=== PATIENT | female | born 1995 | race African-American/Black ===

== ENCOUNTER 2020-02-01 08:11 | Emergency (ER) | payer OTHER, SELFPAY ==
--- NOTE | ~2020-02-01 | XR_ITS ---
EXAMINATION: XR tibia fibula RT 2V DATE: 02/01/2020 08:40 INDICATION: Right lower leg pain. TECHNIQUE: 2 views of right tibia and fibula were obtained. COMPARISON: None. FINDINGS: Bone alignment is normal. No fracture. Joint spaces are well maintained. IMPRESSION: 1. Normal right tibia and fibula. Reviewed, dictated and finalized at location A.
--- NOTE | 2020-02-01 08:21 | ED.GENADULT ---
HPI - General Adult General Chief complaint: Extremity Injury, Lower Stated complaint: right ankle Time Seen by Provider: 02/01/20 08:21 Source: patient Mode of arrival: ambulatory Limitations: no limitations History of Present Illness HPI narrative: 24-year-old female patient presents to the [facility] with complaints of right ankle right leg pain since yesterday. Patient states that she was at work and a piece of wood fell onto her right leg scraping up her right leg. Patient states she is also having pain to the right medial ankle. Patient states she is able to walk on it but does have increased pain when doing so. Patient states that she did put ice on it right after the injury yesterday but denies taking any Tylenol or ibuprofen. Related Data Home Medications Medication Instructions Recorded Confirmed norgestimate-ethinyl estradiol tablet 02/01/20 [Tri-Sprintec (28)] Allergies Allergy/AdvReac Type Severity Reaction Status Date / Time No Known Allergies Allergy Unverified 09/09/18 15:59 Review of Systems Review of Systems: Narrative: CONSTITUTIONAL: Denies fever, chills, or sweats. EYES: Denies visual changes, redness, or discharge. ENT: Denies rhinorrhea, congestion, sore throat, or otalgia. CARDIOVASCULAR: Denies chest pain, palpitations, or edema. RESPIRATORY: Denies cough or dyspnea. GASTROINTESTINAL: Denies abdominal pain, nausea, vomiting, or diarrhea. GENITOURINARY: Denies dysuria or hematuria. SKIN: Denies rash or itching. MUSCULOSKELETAL: Denies back pain, joint pain, or myalgia. Positive right lower leg and ankle pain NEUROLOGIC: Denies headache, numbness, or weakness. PSYCHIATRIC: Denies anxiety or depression. PMFSH Comments At the time of my signature I agree with nursing past medical history, surgical, social, and family history. There is no relevant family history pertinent to the presenting complaint. Exam Narrative: Exam Narrative: GENERAL: Well-appearing, well-nourished, and in no acute distress. HEAD: Normocephalic, atraumatic. EYES: PERRLA and EOMI. ENT: Nares clear, no rhinorrhea or epistaxis. Mucous membranes moist. NECK: Supple. No lymphadenopathy CHEST: Clear to auscultation. No respiratory distress. HEART: Regular rate and rhythm. No murmur heard. Normal peripheral pulses. ABDOMEN: Soft, nontender, nondistended, normal active bowel sounds. EXTREMITIES: Patient is able to bear weight and ambulate but has increased pain to the right ankle. The R ankle is without obvious asymmetry or deformity when compared to the L ankle. Patient can flex/extend, invert/max. Patient does have some superficial abrasions noted to the anterior tib-fib area, slight ecchymosis, no soft tissue swelling. bony tenderness to palpation over the medial malleolus. Slight tenderness over the anterior talofibular ligament, no tenderness to palpation over the posterior talofibular ligament, calcaneofibular ligament nontender and without swelling. No tenderness or deformity of the midfoot or over the proximal fifth metatarsal. Good DP and posterior tibial pulses and sensation to light touch normal. Talar tilt test is negative for ligament laxity to valgus or vargus stress. Negative anterior draw. Peroneal nerve is intact with strong eversion and plantar flexion. SKIN: Warm, dry, no rash. NEURO: No focal deficits. Alert and oriented x3. Course Reevaluation(s) Reevaluation #1: Reevaluated patient after her x-ray had resulted. Discussed with her that the ankle x-ray and lower extremity x-ray is negative for any acute fractures. Discussed with her this is most likely a mild sprain to the right ankle. Discussed with her we will wrap her with an [place] wrap and she can take Tylenol and ibuprofen as needed for pain. Discussed with patient that she needs to clean her abrasions with soap and water and may put some antibiotic ointment over the abrasions to decrease risk of infection. Discussed with patient she needs to elevate t
[2020-02-01 08:25] VITALS: BP 140/84; PULSE 83; RESP 16; TEMP 36.6; O2SAT 100
== END 2020-02-01 08:52 | disposition home or self-care (01) ==
PROVIDERS: Emergency Provider Nurse Practitioner Family
DX: S93.401A Sprain of unspecified ligament of right ankle, initial encounter (principal); W20.8XXA Other cause of strike by thrown, projected or falling object, initial encounter; S80.811A Abrasion, right lower leg, initial encounter
CPT/HCPCS: 73590; 99213; G0463

== ENCOUNTER 2020-02-22 17:44 | Outpatient (CLI) | payer OTHER, SELFPAY ==
[2020-02-22 18:31] LABS: Beta HCG Quantitative < 2.39 mIU/ML
== END 2020-02-22 17:45 | disposition home or self-care (01) ==
PROVIDERS: PCP Family Medicine; Visit Provider Family Medicine
DX: N93.9 Abnormal uterine and vaginal bleeding, unspecified (principal)
CPT/HCPCS: 36415; 84702

== ENCOUNTER 2024-08-08 09:01 | Emergency (ER) | payer SELFPAY ==
[2024-08-08 09:08] VITALS: BP 151/97; PULSE 84; RESP 15; TEMP 36.6; O2SAT 100
--- OUTSIDE RECORDS SUMMARY | 2024-08-08 09:41 | XMS_ITS | Data Portability ---
Author Organization [facility] Betito Maynard Address [address] [place] [address] Care Team Providers Care Cafeteria Monitor Name Role Phone MEENA GABY Primary Care Provider [phone] Assessment No assessment recorded. Plan of Treatment Reminders Order Date Submit Date Provider Last Modified By Organization Details Last Modified Time Details Appointments None recorded. Lab TSH, serum, reflex free T4 2019 [facility], [address], [address], [place], [address], 0 11:23:11 lipid panel, serum 2019 020 [facility], [address], [place], [address], 0 11:23:10 beta-HCG, quantitati ve, serum or plasma 2019 020 [facility] (Lab), [address] [place] [address] [address], [place], [address], 0 10:54:11 CBC w/ auto diff 2019 020 [facility], [address], [address], [place], [address], 0 11:23:10 vitamin D, 25-hydroxy , total, serum 2019 020 [facility], [address], [address], [place], [address], 0 11:23:11 vitamin B12 + folate, serum or blood 2019 020 [facility], [address], [address], [place], [address], 0 11:23:11 iron + total iron-oswald ng capacity (TIBC), serum 2019 020 [facility], [address], [place], [address], 0 11:23:11 pap, IG + CT/NG/TV + reflex HR HPV 2019 020 [email or web address] Not available 0 12:31:16 test, urine 2017 018 [facility] In-Office Order, Internal Use Only DO Not Attach Compendium DO Not Attach Compendium, Do Not Delete/merge, [id number] 8 18:18:43 CT + NG + TV, DNA, urine/swab 2016 017 [facility] ([facility]), [address] [place], [address], 7 01:13:13 Referral None recorded. Procedures None recorded. Surgeries None recorded. Imaging None recorded. [facility] 1 mg-20 mcg (21)/75 mg (7) tablet 2017 018 [place] [address] [facility], [address], [id number], 0 10:57:08 November FE 07/02 () 1 mg-20 mcg (21)/75 mg (7) tablet [address] [facility], [address] [facility] Shira Hinojosa, [place], [address], 0 10:57:08 Patient TargetsNo targets recorded. Patient InstructionsNo instructions recorded. Reason for Referral None Reported. Results Created Date Observation Date Name Description Value Unit Range Abnormal Flag Note LastModifiedBy Organization Detail LastModifiedTime 02/16/20 17 02/17/2017 CT + NG + TV, DNA, urine /swab chlamydia by YUMI Negati ve negati ve Not Available [facility] (Lab) [address] [place], [address], 02/17/2017 01:13:13 02/16/20 17 02/17/2017 CT + NG + TV, DNA, urine /swab gonococcus by YUMI Negati ve negati ve Not Available [facility] (Lab) [address] [place], [address], 02/17/2017 01:13:13 02/16/20 17 02/17/2017 CT + NG + TV, DNA, urine /swab trich vag by YUMI Negati ve negati ve Not Available [facility] (Lab) [address] [place], [address], 02/17/2017 01:13:13 08/10/19 18 08/10/2017 pregn esha test, urine HCG negati ve Not Available In-Office Order Internal Use Only DO Not Attach Compendium DO Not Attach Compendium, Do Not Delete/merge, [id number] 08/10/2017 16:52:47 11/19/19 20 11/19/2019 cultu re, genit al, bacte rial header [facility] [place] [address] Patie nt:COMFORT ASHER 5596 Med Rec#: [id number] Order ing MD: JALEESA SCOTT : [birth year] Sex: F Locat ion: SEOER Test: GENIT AL CULTU RE Colle ct Date: 11-18 18:33 Acces chinedu #: [id number] [facility] (Lab) [address] [facility], [place], [address], 11/22/2019 09:28:59 11/19/19 20 11/19/2019 cultu re, genit al, bacte rial genital culture SPECI MEN DESCR IPTIO N - VAGIN AL SPECI MEN SPECI AL REQUE STS - NO SPECI AL REQUE ST GRAM SMEAR - MODER ATE WHITE BLOOD CELLS SEEN GRAM SMEAR - FEW EPITH ELIAL CELLS SEEN GRAM SMEAR - FEW GRAM POSIT ANNIKA RODS RESEM AYAD LACTO BACIL CASSY SPECI ES GRAM SMEAR - MANY GRAM VARIA BLE COCCO -BACI LLUS GRAM SMEAR - NO YEAST OR FUNGA L ELEME NTS SEEN CULTU RE - HEAVY GROWT H OF GARDN ERELL A VAGIN MYLES STAND ARDIZ ED SUSCE PTIBI LITIE S HAVE NOT BEEN CULTU RE - ESTAB LISHE D FOR THIS ORGAN ISM. CULTU RE - SPARS E GROWT H OF ARI DA ALBIC ANS SUSCE PTIBI LTY NOT ROUTI SAURABH PERFO RMED. SAVIN G CULTU RE - ISOLA TE FOR [address] MICRO BIOLO GY DEPAR TMENT IF FURTH ER GRISEL P IS CULTU RE - INDIC ATED. CULTU RE - ABSEN CE OF MINDY L CHANDRA . REPOR T STATU S - FINAL 11/21 Not Available [facility] (Lab) [address] [facility], [place], [address], 11/22/2019 09:28:59 11/19/19 20 11/19/2019 cultu re, urine header [facility] [place] [address] Patie nt:COMFORT ASHER 5596 Med Rec#: [id number] Order ing MD: JALEESA SCOTT : [birth year] Sex: F Locat ion: SEOER Test: URINE CULTU RE Colle ct Date: 11-18 17:20 Acces chinedu #: [id number] Not Available [facility] (Lab) [address] [facility], [place], [address], 11/21/2019 09:40:00 11/19/19 20 11/19/2019 cultu re, urine urine culture SPECI MEN DESCR IPTIO N - URINE CLEAN CATCH SPECI AL REQUE STS - NO SPECI AL REQUE ST CULTU RE - NO GROWT H 2 DAYS REPOR T STATU S - FINAL 11/20 Not Available [facility] (Lab) [address], [place], [address], 11/21/2019 09:40:00 01/10/20 20 01/16/2020 pap, IG + CT/NG + HR HPV diagnosis: [facility] NEGAT ANNIKA FOR INTRA EPITH ELIAL LESIO N OR GERARDO RIVERA . Perfo rmed at: WB Not Available [facility] (Lab) [address] [facility], [place], [address], 01/16/2020 21:07:24 01/10/20 20 01/16/2020 pap, IG + CT/NG + HR HPV specimen adequacy: [facility] Satis facto ry for evalu ation . Endoc ervic al and/o r squam ous metap lasti c cells (endo cervi elizabeth compo nent) are prese nt. Perfo rmed at: WB Not Available [facility] (Lab) [address], [place], [address], 01/16/2020 21:07:24 01/10/20 20 01/16/2020 pap, IG + CT/NG + HR HPV performed by: [facility] Suzanne reyes, Cytot echno logis t (ASCP ) Perfo rmed at: WB Not Available [facility] (Lab) [address] [place], [address], 01/16/2020 21:07:24 01/10/20 20 01/16/2020 pap, IG + CT/NG + HR HPV Pap smear, 1 slide . Perfo rmed at: WB Not Available [facility] (Lab) [address] [place], [address], 01/16/2020 21:07:24 01/10/20 20 01/16/2020 pap, IG + CT/NG + HR HPV note: PAPSMR The Pap smear is a scree ingris test desig eli to aid in the detec tion of marlyn ligna nt and malig nant condi tions of the uteri ne cervi x. It is not a diagn ostic proce dure and shoul d not be used as the sole means of detec ting cervi elizabeth cance r. Both false -posi tive and false -nega tive repor ts do occur . . Perfo rmed at: WB Not Available [facility] (Lab) [address], [place], [address], 01/16/2020 21:07:24 01/10/2001/16/2020 pap, IG + CT/NG + HR HPV test methodology: IGLPAP This liqui d based ThinP rep(R ) pap test was scree eli with the use of an image guide evette sanches. Perfo rmed at: WB Not Available [facility] (Lab) [address], [place], [address], 01/16/2020 21:07:24 01/10/20 20 01/16/2020 pap, IG + CT/NG + HR HPV HPV, high-risk Negati ve negati ve This nucle ic acid ampli ficat ion high- risk HPV test detec ts thirt een high- risk types (16,1 8,31, 33,35 ,39,4 5,51, 52,56 ,58,5 9,68) witho ut diffe renti ation . Perfo rmed at: =G Not Available [facility] (Lab) [address], [place], [address], 01/16/2020 21:07:24 01/10/2001/16/2020 pap, IG + CT/NG + HR HPV chlamydia, nuc. acid Negati ve negati ve Perfo rmed at: =G Not Available [facility] (Lab) [address], [place], [address], 01/16/2020 21:07:24 01/10/20 20 01/16/2020 pap, IG + CT/NG + HR HPV gonococcus, nuc. acid amp Negati ve negati ve Perfo rmed at: =G Not Available [facility] (Lab) [address] [place], [address], 01/16/2020 21:07:24 01/10/20 20 01/16/2020 pap, IG + CT/NG + HR HPV trich vag by YUMI Negati ve negati ve Perfo rmed at: =G Not Available [facility] (Lab) [address], [place], [address], 01/16/2020 21:07:24 Result Notes None recorded. Problems No Known Problems Procedures Surgical History Date Name Laterality Status Provider Name and Address Organization Details Recorded Time 0 Date of Last Pap Smear completed [facility] 01/10/2020 11:49:59 7 Control Implant Removal completed [facility] 04/20/2017 10:42:12 Imaging Results None recorded. Procedure Notes None recorded. Medical Equipment None Reported. Allergies No known drug allergies Medications Name Sig Start Date Stop Date Status Note LastModified by Organization Details LastModified Time tretinoin 0.1 % topical cream 02/20 completed Not Available Not Available Not Available fluconazole 100 mg tablet 02/20 completed Not Available Not Available Not Available permethrin 5 % topical cream 02/20 completed Not Available Not Available Not Available metronidazo le 500 mg tablet 02/20 completed Not Available Not Available Not Available doxycycline monohydrate 100 mg tablet 02/20 completed Not Available Not Available Not Available 07/02 (28) 1 mg-20 mcg (21)/75 mg (7) tablet Take 1 tablet every day by oral route. 02/20 completed Not Available Not Available Not Available Tri-Sprinte c (28) 0.18 mg(7)/0.215 mg(7)/0.25 mg(7)-35 mcg tablet active Not Available Not Available N ot Available erythromyci n with ethanol 2 % topical solution 02/20 completed Not Available Not Available Not Available Nexplanon 68 mg subdermal implant Inject by subcutane ous route. 01/09 completed Not Available Not Available Not Available Vitals Date Recorded Body height Body mass index (BMI) Body weight Systolic blood pressure Diastolic blood pressure Provider Name and Address Organization Details Last Updated DateTime 08/10/2017 172.72 cm 26.5 kg/m2 32380.07 g 130 mm[Hg] 80 mm[Hg] Guera George [place] [facility] 8 16:28:41 Date Recorded Body height Body mass index (BMI) Body weight Body temperature Systolic blood pressure Diastolic blood pressure Provider Name and Address Organization Details Last Updated DateTime 0 172.72 cm 22.5 kg/m2 90621.9 5 g 98.9 [degF] 110 mm[Hg] 72 mm[Hg] Marvin Wood [facility] 0 11:35:30 Date Recorded Body height Provider Name an d Address Organization Details Last Updated DateTime 02/21/2020 172.72 cm Ivelisse Pena [place] [facility] 2019 10:56:39 Date Recorded Body height Body mass index (BMI) Body weight Systolic blood pressure Diastolic blood pressure Provider Name and Address Organization Details Last Updated DateTime 02/15/2017 172.72 cm 26.5 kg/m2 00662.07 g 128 mm[Hg] 84 mm[Hg] Guera George [place] [facility] 7 15:18:42 Date Recorded Body height Body mass index (BMI) Body weight Systolic blood pressure Diastolic blood pressure Provider Name and Address Organization Details Last Updated DateTime 04/14/2017 172.72 cm 26 kg/m2 53125.3 g 122 mm[Hg] 84 mm[Hg] Guera George [place] [facility] 7 14:24:23 Social History Question Answer Notes LastModified by Organizat ion Details LastModified Time Tobacco Smoking Status Never Smoker NANCY Ramirez, [facility] 02/03/2016 15:13:00 Do You Have An Advance Directive? No jules Information not available 02/15/2017 What Is Your Level Of Alcohol Consumption? None Information not available 02/03/2016 Is Blood Transfusion Acceptable In An Emergency? Yes Information not available 02/15/2017 What Is Your Level Of Caffeine Consumption? None Information not available 02/21/2020 How Much Tobacco Do You Chew? None Information not available 02/15/2017 Are You Currently Employed? Yes Information not available 02/03/2016 What Type Of Diet Are You Following? REGULAR Information not available 02/03/2016 Which Illicit Or Recreational Drugs Have You Used? N/a Information not available 02/21/2020 Do You Or Have You Ever Used E-cigarettes Or Vape? Never Used Electronic Cigarettes Information not available 02/21/2020 Education 4 Year College 5th Year In College Information not available 02/15/2017 What Is Your Occupation? [email or web address] Information not available 02/15/2017 Hard Of Hearing Or Deaf In One Or Both Ears? No Information not available 02/21/2020 Legally Blind In One Or Both Eyes? No Information not available 02/21/2020 Live Alone Or With Others? With Others Information not available 02/15/2017 What Was The Date Of Your Most Recent Tobacco Screening? 02/21/2020 Information not available 02/21/2020 How Many Children Do You Have? 0 Information not available 02/15/2017 Performs Monthly Self-breast Exam? No Sometimes Information not available 02/15/2017 Do You Use Protection During Sex? Always Information not available 02/03/2016 What Is Your Relationship Status? Single Information not available 02/15/2017 Seat Belts Used Routinely Yes Information not available 02/15/2017 Are You Sexually Active? Yes Information not available 02/03/2016 Do You Or Have You Ever Used Smokeless Tobacco? Never Used Smokeless Tobacco Information not available 02/21/2020 How Much Tobacco Do You Smoke? No [email or web address] Information not available 02/03/2016 General Stress Level Medium Information not available 02/21/2020 Do You Use Sunscreen Routinely? No Information not available 02/15/2017 On What Date Was Tobacco Cessation Counseling Provided? 02/21/2020 Information not available 02/21/2020 Sex: Unknown Functional Status Question Answer Note LastModified by Organization D etails LastModified Time Are you able to care for yourself? Yes Information n ot available 02/03/2016 What is your exercise level? None Information not available 02/15/2017 Mental Status None recorded. Family History Relationship Description Onset Age of this Age Resolved Age Notes LastModified by Organization Details LastModified Time Mother Essential hypertension [email or web address] Not available 15:28:04 Father Essential hypertension [email or web address] Not available 15:28:04 Medical History Condition Response Coronary Artery Disease N Other N Atrial Fibrillation N High Blood Pressure N Blood Clots N COPD N Depression N Headaches/Migraines N Anxiety Disorder N Muscle, Joint, or Bone Problems N Polyps N Infertility N Acid Reflux (GERD) N Cancer N Stroke N Headaches N Kidney or Bladder Problems N Acne N Eating Disorder N Skin Problems N Asthma N Allergies N Substance Abuse N Hepatitis N Breast Cancer N Lung Disease N Breast Problem N Anesthesia Complications N ADHD N Endometriosis N High Cholesterol N Liver Disease N Schizophrenia N Thyroid Problems N GI Problems N Anemia N Heart Attack ([place]) N Diabetes N Ovarian Cancer N Blood Transfusions N Seizures/Epilepsy N Abuse/Domestic Violence N Heart Disease N Pre-Eclampsia N Heart Failure N Osteoporosis N Gynecological History Statement/Question Response Flow Heavy Date of LMP 02/14/2020 STIs/STDs N HPV Vaccine Y Duration of Flow (days) 5 Age at Menarche 14 Current Control Method BCPs Age at First Child 1 Frequency of Cycle (Q days) 29 Sexually Active? Y Menses Monthly N Date of Last Pap Smear 01/10/2020 Sexual Problems? N LMP Definite Obstetrics History GPAL:G 0 P 0 0 0 0 Type Value Multiple Births 0 Full Term 0 Induced 0 Spontaneous 0 Premature 0 Living 0 Ectopics 0 Total 0 Immunizations Vaccine Type Date Status Note Provider Nam e and Address Organization Details Recorded Time Tdap 6 completed Not Available [facility] 06/30/2019 02:29:58 meningococcal MCV4P 6 completed Not Available [facility] 06/30/2019 02:29:57 HPV9 6 completed Not Available [facility] 06/30/2019 02:40:22 HPV9 6 completed Not Available [facility] 06/30/2019 02:46:45 Past Encounters Encounter ID Performer Location Encounter Start Date Encounter Closed Date Diagnosis/Indication Diagnosis SNOMED-CT Code Diagnosis ICD10 Code Diagnosis Note [id number] LUKE Giang [address] [address] 02/03/2016 14:44:08 02/03/2016 16:22:25 Active or passive immunization 736611729 Z23 Tolerated well, no adverse reaction observed. Physical examination 588 0005 Z04.9 Physical Exam negative. Patient in NAD, no complaints or concerns. Examinatio n form completed, original given to pt. and copy to file. [id number] LUKE Giang [address] [address] 04/15/2016 12:02:56 04/15/2016 12:50:25 Active or passive immunization 329764599 Z23 #2 dose today. Tolerated well. Gave another copy of VIS [id number] [address] [address] 02/15/2017 15:08:10 02/15/2017 16:14:02 Gynecologic examination 15229192 Z01.419 Contraception care 07644 5005 Z30.40 Return for nexplanon removal in 2 - 3 weeks, if noncomplia nt with OCPs with get another implant [id number] [address] [address] 04/14/2017 14:13:53 04/20/2017 10:43:58 Contraception care 315263476 Z30.40 Nexplanon removed without difficulty . [id number] [address] [address] 08/10/2017 16:14:31 08/10/2017 17:27:04 Contraception education 027076639 Z30.09 Reviewed options. Considerin g OCPs versus IUD. Will start with OCPs. Condoms given. [id number] [address] [address] 01/10/2020 11:24:12 01/10/2020 11:51:51 Screening for malignant neoplasm of cervix 863468196 Z12.4 [id number] Gaby Angel MD [facility] [address] [place] [address] 02/21/2020 10:54:24 02/25/2020 09:06:49 Abnormal uterine bleeding 4360139780 9100 N93.9 Hyperlipid emia screening 712050532 Z13.220 Subclinica l hypothyroidism 67807203 E02 Adult heal th examination 279222320 Z00.00 Health Concerns Section Related Observation LastModified by Organization Detai ls LastModified Time None Recorded Concern Status LastModified by Organization Details LastModified Time None Recorded Advance Directives Directive N: Payers Encounter Date Sequence Insurance Name Policy Number Policy Braun Covered Member ID Braun Member ID Guarantor Name 02/15/2017 1 [facility] PRIOR TO 12/11/2020 (MEDICAID REPLACEMENT - HMO) Comfort Fajardo [id number] Comfort Fajardo 04/14/2017 1 [facility] PRIOR TO 12/11/2020 (MEDICAID REPLACEMENT - HMO) Comfort Fajardo [id number] Comfort Fajardo 08/10/2017 1 [facility] PRIOR TO 12/11/2020 (MEDICAID REPLACEMENT - HMO) Comfort Fajardo [id number] Comfort Fajardo 01/10/2020 1 [facility] PRIOR TO 12/11/2020 (MEDICAID REPLACEMENT - HMO) Comfort Fajardo [id number] Comfort Fajardo 02/21/2020 1 [facility] PRIOR TO 12/11/2020 (MEDICAID REPLACEMENT - HMO) Comfort Fajardo [id number] Comfort Fajardo Notes Date Note Type Note Provider Name and Address Organization Details Recorded Time 02/15/2017 text/html 21 y.o. here for control discussion. Had nexplanon placed 3 years ago. Interested in OCPs. Reports sore breasts at night when not sleeping in a bra. RUSS Epstein 02/15/2017 16:13:53 04/14/2017 text/html 22 y.o. here for Nexplanon removal. Has had it for over 3 years per patient. RUSS Epstein 04/20/2017 10:43:44 08/10/2017 text/html 22 y.o. with LMP 07/06/17. Here to discuss control. Has not been sexually active since Nexplanon removal. Interested in OCPs. Nel hunt, [facility] 08/10/2017 17:27:05 01/10/2020 text/html 24 y.o. G0 wth L MP 12/26/2019. Here for annual exam. Reports puff ironer placed her on OCPs for her acne. No complaints. Nel hunt, [facility] 01/10/2020 11:51:45 02/21/2020 text/html Abnormal BleedingReported bypatient.Onset/Timing :past 2 cycles Duration:almost daily Quality:moderate; passing clots Severity:interferes with daily activities; requires getting up at night; bleeding through onto clothes/sheets Associated Symptoms:dysmenorrhea; shortness of breath;vaginal itching/irritation Etiology of abnormal bleeding not clear. Patient could have a tubal , she could have had a miscarriage--will check quantitative HCG. Patient could have hypothyroidism, which can cause menorrhagia. She will also be checked for significant anemia or thrombocytopenia. Her routine labs will be checked for hyperlipidemia, iron deficiency and vitamin deficiencies. Gaby Angel MD Attn: Accounting,[address] [place], [address], [facility] 02/24/2020 23:31:12 OBGyn Episode No OBEpisode recorded.
--- OUTSIDE RECORDS SUMMARY | 2024-08-08 09:41 | XMS_ITS | Patient Health Summary ---
Author Organization [facility] Address [address] [place] [address] Care Team Providers Care Geothermal Installer Name Role Phone Unknown, Provider Primary Care Provider Unavaila ble Note from [facility],non-owned Affiliates and Associated Physician Practices is amultiple site organization consisting of ambulatory clinics and hospital sitesin [place], [place], [place] and [place]. This disclosure is being madepursuant to the Care Everywhere program and may not contain all information available regarding this patient. Last updated 18.[facility] Allergies No known active allergies Medications * Be aware that medications may not be up to date on this document. Alwaysverify current medications with the patient. * doxycycline monohydrate 100 MG tablet(Started 06/19/2019) Take 1 tablet by mouth 2 times daily Reasons: Common Acne 2 refills by 06/18/2020 * erythromycin (ERYDERM) 2 % solution(Started 06/19/2019) Apply to face area each morning. 30 days supply. 11 refills by 06/18/2020 * tretinoin (RETIN-A) 0.1 % cream(Started 06/19/2019) Pea sized amount to entire face at night. 30 days supply. 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 Social History Tobacco Use Types Packs/Day Years Used Date Smoking Tobacco: Never Smokeless Tobacco: Never Tobacco Cessation:Counseling Given: No Alcohol Use Standard Drinks/Week Comments Not Currently 0 (1 standard drink = 0.6 oz pur e alcohol) Sex and Gender Information Value Date Recorded Sex Assigned at Not on file Gender Identity Not on file Sexual Orientation Not on file Last Filed Vital Signs Vital Sign Reading Time Taken Comments Blood Pressure 149/89 10/03/2022 10:19 AM CDT Pulse 82 10/03/2022 10:19 AM CDT Temperature 36.6 C (97.8 F) 10/03/2022 10:19 AM CDT Respiratory Rate 18 10/03/2022 10:19 AM CDT Oxygen Saturation 97% 10/03/2022 10:19 AM CDT Inhaled Oxygen Concentration - - Weight 80.7 kg (178 lb) 10/03/2022 10:19 AM CDT Height 172.7 cm (5' 8 ) 10/03/2022 10:19 AM CDT Body Mass Index 27.06 10/03/2022 10:19 AM CDT Procedures * XR FOOT LEFT 3VW OR MORE(Performed 10/03/2022) Performed for Left foot pain Results * XR FOOT LEFT 3VW OR MORE (10/03/2022 10:38 AM CDT) Anatomical Region Laterality Modality Ankle / Foot Radiographic Isha ging 10/03/2022 10:4 2 AM CDT Impressions 10/03/2022 10:43 AM CDT IMPRESSION: Normal > Interpreting Provider: Jose Alfredo Ruano MD on 10/03/2022 10:43 AM Narrative 10/03/2022 10:43 AM CDT PROCEDURE: XR FOOT LEFT 3VW OR MORE DATE/TIME OF EXAM: 10/03/2022 10:39 AM CLINICAL INFORMATION: None relevant/not provided if blank. Indication: M79.672: Pain in left foot Additional History: COMPARISON: None. FINDINGS: There is no fracture, dislocation or gas in the soft tissues. No radiopaque foreign body. No degenerative changes. Procedure Note Jose Alfredo Ruano MD - 10/03/2022 PROCEDURE: XR FOOT LEFT 3VW OR MORE DATE/TIME OF EXAM: 10/03/2022 10:39 AM CLINICAL INFORMATION: None relevant/not provided if blank. Indication: M79.672: Pain in left foot Additional History: COMPARISON: None. FINDINGS: There is no fracture, dislocation or gas in the soft tissues. No radiopaque foreign body. No degenerative changes. IMPRESSION: Normal > Interpreting Provider: Jose Alfredo Ruano MD on 10/03/2022 10:43 AM Sonam Pena FLAT FOLDING MACHINE OPERATOR-DRAMATIC ARTS HISTORIAN DIAGNOSTIC IMAG ING ORDERABLES Care Teams Geothermal Installer Relationship Specialty Start Date End Date Unknown, Provider PCP - General 10/12/17
--- OUTSIDE RECORDS SUMMARY | 2024-08-08 09:41 | XMS_ITS | Referral Summary ---
Author Organization [facility] [employer] Address [address] [place] [address] Care Team Providers Care Brand Sales Manager Name Role Phone Unknown, Provider Primary Care Provider Unavaila ble Source Comments [facility],non-owned Affiliates and Associated Physician Practices is amultiple site organization consisting of ambulatory clinics and hospital sitesin [place], [place], [place] and [place]. This disclosure is being madepursuant to the Care Everywhere program and may not contain all information available regarding this patient. Last updated 18.[facility] [employer] Allergies No known active allergies Medications * Be aware that medications may not be up to date on this document. Alwaysverify current medications with the patient. Medication Sig Dispensed Refills Start Date End Date Status doxycycline monohydrate 100 MG tabletIndications:Acne Vulgaris Take 1 tablet by mouth 2 times daily Reasons: Common Acne 60 tablet 2 06/19/2019 Active erythromycin (ERYDERM) 2 % solutionIndications:Ac ne vulgaris Apply to face area each morning. 30 days supply. 60 mL 11 06/19/2019 Active tretinoin (RETIN-A) 0.1 % creamIndications:Acne vulgaris Pea sized amount to entire face at night. 30 days supply. 45 g 11 06/19/2019 Active TRI-SPRINTEC tabletIndications:Acne vulgaris TAKE 1 TABLET BY MOUTH DAILY 84 tablet 1 11/28/2019 Active ibuprofen (Motrin) 600 MG tablet Take 1 (one) tablet by mouth every 6 hours as needed for Pain 20 tablet 10/03/2022 Active Active Problems Problem Noted Date Diagnosed Date [...] Mass Index 27.06 10/03/2022 10:19 AM CDT Plan of Treatment Not on file Care Teams Brand Sales Manager Relationship Specialty Start Date End Date Unknown, Provider PCP - General 10/12/17
--- OUTSIDE RECORDS SUMMARY | 2024-08-08 09:41 | XMS_ITS | Clinical Summary ---
Author Organization [facility] [employer] Address [address] [facility] [address] [place] [address] Care Team Providers Care Grease Monkey Name Role Phone Unknown, Provider Primary Care Provider Unavaila ble Source Comments [facility],non-owned Affiliates and Associated Physician Practices is amultiple site organization consisting of ambulatory clinics and hospital sitesin [place], [place], [place] and [place]. This disclosure is being madepursuant to the Care Everywhere program and may not contain all information available regarding this patient. Last updated 18.[facility] [employer] Allergies No known active allergies Medications * [...] 10/03/2022 10:19 AM CDT Plan of Treatment Health Maintenance Due Date Last Done Comments HIV SCREENING 2011 HEPATITIS C SCREENING 02/28/2014 DTAP/TDAP/TD VACCINES (1 - Tdap) 2015 HEPATITIS B VACCINE (1 of 3 - 19+ 3-dose series) 2015 PAP SMEAR 11/18/2022 11/19/2019 COVID-19 VACCINE (3 - 2023-2 5 season) 2024 08/14/2021, 07/17/2021 INFLUENZA VACCINE (#1) 2024 06/25/2010 DEPRESSION SCREENING 06/13/2024 ZOSTER VACCINE (1 of 2) 2046 HIB VACCINE Aged Out No longer eligi ble based on patient's age to complete this topic HPV VACCINE Aged Out No longer eligi ble based on patient's age to complete this topic MENINGOCOCCAL (Group B) VACCINE Aged Out No longer eligible b ased on patient's age to complete this topic MENINGOCOCCAL VACCINE Aged Out No zabrina sravan eligible based on patient's age to complete this topic PNEUMOCOCCAL VACCINE Aged Out No long er eligible based on patient's age to complete this topic Care Teams Grease Monkey Relationship Specialty Start Date End Date Unknown, Provider PCP - General 10/12/17
--- OUTSIDE RECORDS SUMMARY | 2024-08-08 09:41 | XMS_ITS | Clinical Summary ---
Author Organization [facility] Address [address] [place] [id number] Care Team Providers Care Financial Internship Name Role Phone Nel Murguia MD Primary Care Provider [phone] Allergies No known active allergies Medications fluconazole 100 MG tablet Take one tablet today, repeat in 1 week 2 tablet 11/19/2019 Active Family History Medical History Relation Comments Hypertension Father Hypertension Mother Relation Status Comments Father Alive Mother Alive Social History Tobacco Use Types Packs/Day Years Used Date Smoking Tobacco: Passive Smo ke Exposure - Never Smoker Smokeless Tobacco: Never Alcohol Use Standard Drinks/Week Comments Yes 0 (1 standard drink = 0.6 oz pur e alcohol) seldom Comments No Sex and Gender Information Value Date Recorded Sex Assigned at Not on file Legal Sex Female 3:13 PM CDT Gender Identity Not on file Sexual Orientation Not on file Last Filed Vital Signs Vital Sign Reading Time Taken Comments Blood Pressure 128/97 11/19/2019 6:46 PM CDT Pulse 74 11/19/2019 6:46 PM CDT Temperature 37 C (98.6 F) 11/19/2019 3:31 PM CDT Respiratory Rate 20 11/19/2019 6:46 PM CDT Oxygen Saturation 98% 11/19/2019 6:46 PM CDT Inhaled Oxygen Concentration - - Weight 72.6 kg (160 lb) 11/19/2019 3:31 PM CDT Height 172.7 cm (5' 8 ) 11/19/2019 3:31 PM CDT Body Mass Index 24.33 11/19/2019 3:31 PM CDT Plan of Treatment Health Maintenance Due Date Last Done Comments Cervical Cancer Screening Pa p Smear (Age 21 to 29) Every 3 Years 1996 Cervical Cancer Screening 1996 Annual Physical 1999 Hepatitis C 2014 DTaP, Tdap and Td Vaccines ( 1 - Tdap) 2015 Hepatitis B Vaccines (1 of 3 - 19+ 3-dose series) 2015 COVID-19 Vaccine (1 - 2023-2 5 season) 2024 Influenza Adult (#1) 2024 HPV Vaccines Aged Out No longer eligi ble based on patient's age to complete this topic Meningococcal B Vaccine Aged Out No l onger eligible based on patient's age to complete this topic Meningococcal Vaccine Aged Out No zabrina sravan eligible based on patient's age to complete this topic Pneumococcal Vaccine: Pediat rics (0 to 5 Years) and At-Risk Patients (6 to 64 Years) Aged Out No longer eligible b ased on patient's age to complete this topic RSV Immunizations Under 20 Months Aged Out No longer eligible based on patient's age to complete this topic Insurance [place] [address] Care Teams Financial Internship Relationship Specialty Start Date End Date Nel Murguia MD [address] [place] [address] PCP - General OBSTETRICS 11/19/19
--- NOTE | 2024-08-08 10:13 | ED.GENADULT ---
HPI - General Adult General Chief complaint: Unspecified <Piper Daniels PA-C - Last Filed: 08/08/24 14:43> Stated complaint: needs STD treatment <Piper Daniels PA-C - Last Filed: 08/08/24 14:43> Time Seen by Provider: 08/08/24 10:13 <Piper Daniels PA-C - Last Filed: 08/08/24 14:43> Focused HPI: This is a 29 year old female that presents to the ER for positive STD testing. Reports she was tested last week at [facility] in [facility]. Reports she is positive for gonorrhea. Presents for treatment. Reports she has had some discharge. Denies any other symptoms. GENERAL: Well-appearing, well-nourished, and in no acute distress. HEAD: Normocephalic, atraumatic. CHEST: Clear to auscultation. ?No respiratory distress. HEART: Regular rate and rhythm.? NEURO: ?Alert and oriented x3. Patient screened in triage and initial orders placed.? ?Additional care and disposition to be based upon?diagnostic testing and treatment. <Piper Daniels PA-C - Last Filed: 08/08/24 14:43> History of Present Illness HPI narrative: 29-year-old female presents emergency department with chief complaint of STI exposure. Patient reports that she was called today and told that she had a positive gonorrhea test. Patient states that she is not having any symptoms other than some discharge but is not having any pain patient reports he is currently on her. <Juan Carlos Sutherland MD - Last Filed: 08/08/24 12:12> Related Data Home medications: Home Medications ?Medication ?Instructions ?Recorded ?Confirmed ?Last Taken ?Type norgestimate-ethinyl estradiol tablet 02/01/20 Unknown History 0.18 mg/0.215mg/0.25mg-35 mcg(28)tablet (Tri-Sprintec (28)) <Piper Daniels PA-C - Last Filed: 08/08/24 14:43> Allergies/adverse reactions: Allergies Allergy/AdvReac Type Severity Reaction Status Date / Time No Known Allergies Allergy Verified 08/08/24 09:03 <Piper Daniels PA-C - Last Filed: 08/08/24 14:43> Review of Systems Review of Systems: A 10 system review of systems was completed on the patient and is negative except for what is stated in the HPI. Nursing and ancillary documentation was reviewed. <Juan Carlos Sutherland MD - Last Filed: 08/08/24 12:12> Exam Narrative: GENERAL: Well-appearing, well-nourished, and in no acute distress. HEAD: Normocephalic, atraumatic. EYES: PERRLA and EOMI. ENT: Nares clear, no rhinorrhea or epistaxis. Mucous membranes moist. NECK: Supple. CHEST: Clear to auscultation. No respiratory distress. HEART: Regular rate and rhythm. No murmur heard. Normal peripheral pulses. ABDOMEN: Soft, nontender, nondistended, normal active bowel sounds. EXTREMITIES: Normal range of motion. No edema. SKIN: Warm, dry, no rash. NEURO: No focal deficits. Alert and oriented x3. PSYCH: Normal mood and affect. <Juan Carlos Sutherland MD - Last Filed: 08/08/24 12:12> Course Course Emergency Course: Patient was given a dose Rocephin in the emergency department discharged home on doxycycline <Juan Carlos Sutherland MD - Last Filed: 08/08/24 12:12> Vital Signs Vital signs: Vital Signs Temperature 97.8 F 08/08/24 09:08 Pulse Rate 84 08/08/24 09:08 Respiratory Rate 15 08/08/24 09:08 Blood Pressure 151/97 H 08/08/24 09:08 Pulse Oximetry 100 08/08/24 09:08 Temperature 97.8 F 08/08/24 09:08 Pulse Rate 80 08/08/24 12:55 Respiratory Rate 16 08/08/24 12:55 Blood Pressure 150/90 H 08/08/24 12:55 Pulse Oximetry 97 08/08/24 12:55 <Piper Daniels PA-C - Last Filed: 08/08/24 14:43> Vital Signs Temperature 97.8 F 08/08/24 09:08 Pulse Rate 84 08/08/24 09:08 Respiratory Rate 15 08/08/24 09:08 Blood Pressure 151/97 H 08/08/24 09:08 Pulse Oximetry 100 08/08/24 09:08 Temperature 97.8 F 08/08/24 09:08 Pulse Rate 80 08/08/24 12:55 Respiratory Rate 16 08/08/24 12:55 Blood Pressure 150/90 H 08/08/24 12:55 Pulse Oximetry 97 08/08/24 12:55 <Juan Carlos Sutherland MD - Last Filed: 08/08/24 12:12> Medical Decision Making Vital Signs Vital Signs: Vital Signs Temperature 97.8 F 08/08/24 09:08 Pulse Rate 84 08/08/24 09:08 Respiratory Rate 15 08/08/24 09:08 Blood Pressure 151/97 H 08/08/24 09:08 Pulse Oximetry 100 08/08/24 09:08 Temperature 97.8 F 08/08/24 09:08 Pulse Rate 80 08/08/24 12:55 Respiratory Rate 16 08/08/24 12:55 Blood Pressure 150/90 H 08/08/24 12:55 Pulse Oximetry 97 08/08/24 12:55 <Piper Daniels PA-C - Last Filed: 08/08/24 14:43> Vital Signs Temperature 97.8 F 08/08/24 09:08 Pulse Rate 84 08/08/24 09:08 Respiratory Rate 15 08/08/24 09:08 Blood Pressure 151/97 H 08/08/24 09:08 Pulse Oximetry 100 08/08/24 09:08 Temperature 97.8 F 08/08/24 09:08 Pulse Rate 80 08/08/24 12:55 Respiratory Rate 16 08/08/24 12:55 Blood Pressure 150/90 H 08/08/24 12:55 Pulse Oximetry 97 08/08/24 12:55 <Juan Carlos Sutherland MD - Last Filed: 08/08/24 12:12> Critical Care Time Critical Care Time Critical Care Time: No <Piper Daniels PA-C - Last Filed: 08/08/24 14:43> Discharge Plan Discharge Clinical Impression: Possible exposure to STI <HARRIET Milner Last Filed: 08/08/24 14:43> Patient Disposition: Home, Self-Care <Piper Daniels PA-C - Last Filed: 08/08/24 14:43> Condition: Stable <Piper Daniels PA-C - Last Filed: 08/08/24 14:43> Instructions: Antibiotic Form, Sexually Transmitted Diseases (ED) <Piper Daniels PA-C - Last Filed: 08/08/24 14:43> Patient Language: Upper Sorbian <Piper Daniels PA-C - Last Filed: 08/08/24 14:43> Prescriptions: New doxycycline hyclate 100 mg tablet 100 mg PO BID Qty: 14 0RF No Action norgestimate-ethinyl estradiol [Tri-Sprintec (28)] 0.18/0.215/0.25 mg-35 mcg (28) tablet <Piper Daniels PA-C - Last Filed: 08/08/24 14:43> Follow-up/Referrals: Angel,Gaby Navarro MD [Non-Staff] - <Piper Daniels PA-C - Last Filed: 08/08/24 14:43> Time of Disposition: 12:12 <Piper Daniels PA-C - Last Filed: 08/08/24 14:43> 12:12 <Juan Carlos Sutherland MD - Last Filed: 08/08/24 12:12>
[2024-08-08] MEDS: cefTRIAXone 1 GM VIAL 0.5 GM IM (12:42)
[2024-08-08] MEDS: LIDOCAINE 1% LOCAL INJ 10 ML VIAL (12:43)
[2024-08-08 12:55] VITALS: BP 150/90; PULSE 80; RESP 16; O2SAT 97
--- OUTSIDE RECORDS SUMMARY | 2024-08-08 13:48 | XMS_ITS | Referral Summary ---
Author Organization [facility] [employer] Address [address] [place] [address] Care Team Providers Care Process Area Supervisor Name Role Phone Unknown, Provider Primary Care Provider Unavaila ble Source Comments [facility],non-owned Affiliates and Associated Physician Practices is amultiple site organization consisting of ambulatory clinics and hospital sitesin [place], [place], [place] and [place]. This disclosure is being madepursuant to the Care Everywhere program and may not contain all information available regarding this patient. Last updated 18.[facility] [employer] Allergies No known active allergies Medications * [...] of Treatment Not on file Care Teams Process Area Supervisor Relationship Specialty Start Date End Date Unknown, Provider PCP - General 10/12/17
--- OUTSIDE RECORDS SUMMARY | 2024-08-08 13:48 | XMS_ITS | Clinical Summary ---
Author Organization [facility] [employer] Address [address] [facility] [address] [place] [address] Care Team Providers Care Gem Setter Name Role Phone Unknown, Provider Primary Care Provider Unavaila ble Source Comments [facility],non-owned Affiliates and Associated Physician Practices is amultiple site organization consisting of ambulatory clinics and hospital sitesin [place], [place], [place] and [place]. This disclosure is being madepursuant to the Care Everywhere program and may not contain all information available regarding this patient. Last updated 18.[facility] [employer] Allergies No known active allergies Medications * [...] age to complete this topic Care Teams Gem Setter Relationship Specialty Start Date End Date Unknown, Provider PCP - General 10/12/17
--- OUTSIDE RECORDS SUMMARY | 2024-08-08 13:48 | XMS_ITS | Patient Health Summary ---
Author Organization [facility] Address [address] [place] [address] Care Team Providers Care Agricultural Education Professor Name Role Phone Unknown, Provider Primary Care Provider Unavaila ble Note from [facility],non-owned Affiliates and Associated Physician Practices is amultiple site organization consisting of ambulatory clinics and hospital sitesin [place], [place], [place] and [place]. This disclosure is being madepursuant to the Care Everywhere program and may not contain all information available regarding this patient. Last updated 18.[facility] Allergies No known active allergies Medications * [...] MD on 10/03/2022 10:43 AM Sonam Pena MAJOR APPLIANCE ASSEMBLY SUPERVISOR-SUPERVISOR CUTTING AND BONING DIAGNOSTIC IMAG ING ORDERABLES Care Teams Agricultural Education Professor Relationship Specialty Start Date End Date Unknown, Provider PCP - General 10/12/17
== END 2024-08-08 12:55 | disposition home or self-care (01) ==
PROVIDERS: Emergency Provider Emergency Medicine
DX: A54.9 Gonococcal infection, unspecified (principal)
CPT/HCPCS: 96372; 99283; J0696; J2003